=== PATIENT | female | born 1990 | race African-American/Black ===

== ENCOUNTER 2016-08-27 15:48 | Emergency (ER) | payer MEDICAID ==
--- NOTE | ~2016-08-27 | CR181 ---
[facility]. [facility] A Service of [facility] RADIOLOGY TEXT RESULTS PATIENT: BEBE SMART LOCATION: SED : [birth year] UNIT #: [id number] AGE: [address]: Veronica Anders SEX: F ORDER DR: [id number] [address] [address] [id number] E MR#: [id number] Acc #: [id number] NAME: BEBE SMART. : 1990 SEX: F STUDY DATE/TIME: 08/27/2016 15:34 UNIT: SED ROOM: STUDY DESCRIPTION: CR Lumbar Spine 2 or 3 Views Attending Physician: Veronica Anders Pa-C Referring Physician: Veronica Anders Pa-C Ordering Physician: Veronica Anders Pa-C MEDICAL IMAGING REPORT This report is preliminary unless electronic signature is present. EXAM Lumbar spine HISTORY Fell down 1 hour ago. Back pain. FINDINGS AP and lateral projections of the lumbar segment show good mineralization of both anterior and posterior elements. They are all anatomically normal without indication of fracture, dislocation, or malignant change of a sclerotic or lytic type. There is no congenital defect noted. The sacroiliac joints are normal. IMPRESSION Normal lumbar spine. Dictated by... Rosibel Adams M.D. THIS IS AN ELECTRONICALLY VERIFIED REPORT Rosibel Adams M.D. at 08/27/2016 8:37 PM BIMAL/francy TD: 08/27/2016 18:48 JOB #: [id number] MEDICAL IMAGING REPORT Page 1 of 1
--- NOTE | ~2016-08-27 | CR243 ---
[facility] A Service of [facility] RADIOLOGY TEXT RESULTS PATIENT: BEBE SMART LOCATION: SED : [birth year] UNIT #: [id number] AGE: [address]: Veronica Anders PAC SEX: F ORDER DR: [id number] [place] [id number] E MR#: [id number] Acc #: [id number] NAME: BEBE SMART. : 1990 SEX: F STUDY DATE/TIME: 08/27/2016 15:34 UNIT: SED ROOM: STUDY DESCRIPTION: CR Thoracic Spine 3 Views Attending Physician: Veronica Anders Pa-C Referring Physician: Veronica nAders Pa-C Ordering Physician: Veronica Anders Pa-C Primary Care Physician: Sara Primary Care Physician MEDICAL IMAGING REPORT This report is preliminary unless electronic signature is present. EXAM Thoracic spine. HISTORY Mid lower back pain. Fell down steps 1 hour ago. FINDINGS AP and lateral examination of the dorsal segment shows normal mineralization and a satisfactory anatomical dorsal kyphosis. All body heights, interspaces, and posterior elements are normal anatomically without any indication of malignancy, trauma, unusual paraspinal soft tissue density mass, or congenital defect. IMPRESSION Normal thoracic spine. Dictated by... Rosibel Adams M.D. THIS IS AN ELECTRONICALLY VERIFIED REPORT Rosibel Adams M.D. at 08/27/2016 8:37 PM [place]rina TD: 08/27/2016 19:09 JOB #: [id number] MEDICAL IMAGING REPORT [facility] A Service of [facility] RADIOLOGY TEXT RESULTS PATIENT: BEBE SMART LOCATION: SED : [birth year] UNIT #: [id number] AGE: [address]: Veronica Anders PAC SEX: F ORDER DR: Page 1 of 1
[~2016-08-27 15:48] MED LIST: DICLEGIS DR 101 EACH PO; PEPCID AC20 M2 PO; PHENERGAN12.5 MG DOB
== END 2016-08-27 16:45 | disposition home or self-care (01) ==
LOC: SED 15:48
DX: S30.0XXA Contusion of lower back and pelvis, initial encounter (principal); S20.229A Contusion of unspecified back wall of thorax, initial encounter; W01.0XXA Fall on same level from slipping, tripping and stumbling without subsequent striking against object, initial encounter
CPT/HCPCS: 72072; 72100; 84703; 96372; 99284; J1885